=== PATIENT | female | born 1985 | race Caucasian/White ===

== ENCOUNTER → 2018-01-13 | Outpatient (CLI) | payer BC ==
[2018-01-13 15:54] LABS: T4, Free (Free Thyroxine) 0.83 ng/dL (0.78-2.19)
[2018-01-13 21:36] LABS: Hemoglobin A1C 5.4 % (4.0-6.0)
== END ==
LOC: LABWHC1 14:24
PROVIDERS: ATTEND Obstetrics & Gynecology
DX: Z13.1 Encounter for screening for diabetes mellitus (principal)
CPT/HCPCS: 36415; 83036; 84439; 84443

== ENCOUNTER → 2018-05-25 | Outpatient (CLI) | payer MEDICAID, OTHER ==
[2018-05-25 15:15] LABS: HCT 38.5 % (34.0-46.0); HGB 12.8 gm/dL (11.4-16.0); MCH 31.9 pg (25.0-35.0); MCHC 33.2 g/dL (31.0-37.0); MCV 96.1 fL (80.0-100.0); Mean Platelet Volume 6.9; Platelet Count 249 k/uL (150-450); RDW 12.7 % (11.5-15.5); WBC 8.7 k/uL (3.8-10.6)
== END | disposition home or self-care (01) ==
LOC: LABWHC1 14:40
PROVIDERS: ATTEND Obstetrics & Gynecology
DX: Z34.81 Encounter for supervision of other normal pregnancy, first trimester (principal)
CPT/HCPCS: 36415; 82565; 82947; 85027; 86762; 86780; 86900; 86901; 87340

== ENCOUNTER → 2018-06-04 | Outpatient (CLI) | payer MEDICAID ==
--- NOTE | 2018-06-04 11:31 | US ---
EXAMINATION TYPE: Transabdominal DATE OF EXAM: 07/21/17 COMPARISON: NONE CLINICAL HISTORY: Z36 Confirm dates. EXAM PERFORMED: Transabdominal (TA) EXAM MEASUREMENTS: GESTATIONAL AGE / DATING Physician Established: (11 weeks/4 days) EDC: 12/20/2018 Dates by LMP: (11 weeks/4 days) EDC: 12/20/2018 Dates by First Scan: No previous this is first scan ( Dates by Current Scan for: (12 weeks/4 days) EDC: 12/13/2018 MATERNAL ANATOMY Uterus: 10.8 x 8.5 x 9.7 cm Right Ovary: 3.4 x 2.3 x 3.0 cm Left Ovary: 2.6 x 1.7 x 2.0 cm Post CDS / Adnexa: wnl Presence of free fluid: No Presence of corpus luteal cyst: Right ovary cystic area visualized 1.5 x 1.4 x 1.9 cm Presence of subchorionic bleed: No GESTATION / SURVEY CRL: 6.1 cm (12 weeks/4 days Heart Rate: 156 bpm Rhythm: Normal IUP: Viable IUP Nuchal Translucency 10-14wks (normal less than 3mm): 0.1 cm Date of LMP: 03/15/2018 Live IUP with an GATITO of 12/13/2018 by this exam. IMPRESSION: Single live intrauterine with a sonographic age of 12 weeks and 4 days and estimated date o f delivery of 12/13/2018, overall concordant with menstrual age (within 7 days).
== END ==
LOC: RADUSWWP 10:55
PROVIDERS: ATTEND Obstetrics & Gynecology
DX: Z36.89 Encounter for other specified antenatal screening (principal); Z3A.12 12 weeks gestation of pregnancy
CPT/HCPCS: 76801; 76813

== ENCOUNTER → 2018-07-22 | Outpatient (CLI) | payer MEDICAID ==
--- NOTE | 2018-07-22 15:24 | US ---
EXAMINATION TYPE: US OB anatomy transabd DATE OF EXAM: 07/22/2018 COMPARISON: First trimester ultrasound June 04, 2018 HISTORY: 2nd trimester Large for dates O36.62X0 Anatomy TECHNIQUE: Transabdominal (TA) EXAM MEASUREMENTS: GESTATIONAL AGE / DATING Physician Established: (19 weeks/3 days) EDC: 12/13/2018 Dates by Current Scan for: (19 weeks/5 days) EDC: 12/11/2018 SURVEY IUP: Single PLACENTA: Posterior PREVIA: No previa UNIQUE: 16.0 cm Normal CERVICAL LENGTH (transabdominal: norm > 3.0cm): 3.9 cm BIOMETRY LIE: Transverse lie with head maternal Left, variable BPD: 4.5 cm 19 weeks / 5 days HC: 16.9 cm 19 weeks / 4 days AC: 15.3 cm 20 weeks / 3 days FL: 2.8 cm 18 weeks / 4 days ESTIMATED WEIGHT IN GRAMS: 302 grams ESTIMATED WEIGHT IN LBS/OZ: 0 lbs. 11 oz. WEIGHT PERCENTAGE BASED ON ESTABLISHED DATE: 56 % HC/AC: 1.1 Normal FL/AC: 18% HEART RATE: 149 bpm RHYTHM: Normal ANATOMY SEEN (within normal limits): * Lateral Vent (< 1 cm) 0.7 cm * Cisterna Magna (< 1.1 cm) 0.4 cm * Nuchal Fold (< 0.6 cm) 0.3 cm * Cerebellum (varies with age) 1.9 cm Choroid Plexus (bilateral) Midline Falx Cavus Septi Pellucidi Four Chamber Heart Outflow tracts: LVOT/RVOT Stomach Situs Nose / Lips Diaphragm Kidneys (bilateral) Bladder Cord Insert Three Vessel Cord Longitudinal Spine Transverse Spine Arms (bilateral) Legs (bilateral) ANATOMY SEEN (does not appear within normal limits): none ANATOMY NOT SEEN: none Single live intrauterine gestation is redemonstrated. No cervical thinning is seen. Amniotic fluid in dex is calculated within normal limits. position is variable. biometry measurements are c oncordant felt within normal limits. No ultrasound evidence for placenta previa. Detailed anatomical survey shows no suspicious abnormality during real-time scanning. nose and lips are not well se en on coronal profile on images saved. IMPRESSION: As above.
== END | disposition home or self-care (01) ==
LOC: RADUSWWP 11:04
PROVIDERS: ATTEND Obstetrics & Gynecology
DX: O36.62X0 Maternal care for excessive fetal growth, second trimester, not applicable or unspecified (principal); Z3A.19 19 weeks gestation of pregnancy
CPT/HCPCS: 76811

== ENCOUNTER 2018-07-31 18:14 | Outpatient (CLI) | payer MEDICAID ==
[2018-07-31 18:52] VITALS: BP 124/78; PULSE 97; RESP 18; TEMP 97.6
[2018-07-31 18:58] LABS: Appearance,Urine Clear (Clear); Bilirubin,Urine Negative (Negative); Blood,Urine Negative (Negative); Color,Urine Yellow; Glucose,Urine (UA) Negative (Negative); Ketones,Urine Negative (Negative); Leukocyte Esterase,Urine Negative (Negative); Nitrite,Urine Negative (Negative); PH, Urine 6.5 (5.0-8.0); Protein,Urine Trace (Negative); Urobilinogen,Urine <2.0 mg/dL (<2.0)
--- NOTE | 2018-07-31 19:50 | US ---
EXAMINATION TYPE: US OB >= 14 wk fetus DATE OF EXAM: 07/31/2018 COMPARISON: None CLINICAL HISTORY: vaginal bleeding TECHNIQUE: Transabdominal (TA) GESTATIONAL AGE / DATING Physician Established: (20 weeks/5 days) EDC: 12/13/2018 Dates by LMP: 20 weeks/5 days) EDC: 12/13/2018 Dates by First Scan: 20 weeks/5 days) EDC: 12/13/2018 Dates by Current Scan: 20 weeks/5 days) EDC: 12/13/2018 SURVEY IUP: Single PLACENTA: Posterior PREVIA: No Previa UNIQUE: 16.0 cm Normal CERVICAL LENGTH (transabdominal: norm > 3.0cm): 3.5 cm BIOMETRY PRESENTATION: Vertex LIE: Longitudinal BPD: 5.0 cm 21 weeks / 1 days HC: 18.5 cm 20 weeks / 6 days AC: 16.1 cm 21 weeks / 1 days FL: 3.4 cm 20 weeks / 6 days ESTIMATED WEIGHT IN GRAMS: 390 grams ESTIMATED WEIGHT IN LBS/OZ: 0 lbs. 14 oz. WEIGHT PERCENTAGE BASED ON ESTABLISHED DATES: 59.6% HC/AC: 1.15 Normal FL/AC: 21.35 Normal HEART RATE: 148 bpm RHYTHM: Normal Viable IUP, measurements consistent with dates IMPRESSION: There is satisfactory growth compared to last exam of 06/04/2018. No complicating process.
--- NOTE | 2018-08-02 06:16 | P.MSEPDOC ---
Presenting Problems - Arrival Data Date of Arrival on Unit: 07/31/18 Time of Arrival on Unit: 18:15 Mode of Transport: Portable - Complaint OB-Reason for Admission/Chief Complaint: Vaginal Bleeding Comment: small blood clot and spotting for the last 2-3 days Medical History - Information : 5 Para: 1 Term: 1 : 0 Abortions: Spontaneous or Elective: 3 Number of Living Children: 1 - Gestational Age Gestational Age by GATITO (wks/days): 20 Weeks and 2 Days Review of Systems - Review of Systems Constitutional: No problems Breast: No problems ENT: No problems Cardiovascular: No problems Respiratory: No problems Gastrointestinal: No problems Genitourinary: No problems Musculoskeletal: No problems Neurological: No problems Skin: No problems Vital Signs - Temperature Temperature: 97.6 F Temperature Source: Temporal Artery Scan - Pulse Right Brachial Pulse Rate: 97 Pulse Assessment Method: Auscultation - Respirations Respiratory Rate: 18 Oxygen Delivery Method: Room Air - Blood Pressure Right Arm Blood Pressure: 124/78 Blood Pressure Mean: 93 Blood Pressure Source: Automatic Cuff Medical Screen Scoring (Pre) - Cervical Exam Dilation: Exam Deferred Effacement: Exam Deferred Membranes: Intact - Uterine Contractions Frequency: N/A - Maternal Vital Signs Maternal Temperature: N/A Maternal Blood Pressure: N/A Signs of Preeclampsia: N/A - Pain Assessment Pain Intensity: 3 Pain Management Goal: 1 Pain Description: *Acute, Aching Pain Radiation Location: none Pain Frequency: Intermittent Pain Duration: 3 Pain Duration Units: Days Pain Behavior: None Exhibited, Vocalization Pain Aggravating Factors: None - Maternal Trauma Maternal Trauma: N/A - Assessment Heart Rate - NICHD Category: Category I (Normal) = 0 Position: N/A Station: N/A - Total Score Total Score (Pre): 0 - Level of Risk Level of Risk: Low (0-5) Physician Notification (Pre) - Physician Notified Physician Notified Date: 07/31/18 Physician Notified Time: 18:41 Physician/Practitioner Notifed:: Dr. Ambrocio Spoke With: Dr. Ambrocio New Order Received: Yes - Notification Comment Comment: orders to obtain UA and complete OB ultrasound Disposition - Disposition Discharge Date: 07/31/18 Discharge Time: 19:39 I agree with the RN Medical Screening Exam: Yes Risk & Benefit of care provided described in d/c instruction: Yes Diagnosis: SPOTTING COMPLICATING , SECOND TRIMESTER (Patient reports spotting on and off for the last week or so. Ultrasound is repeated normal without evidence of placenta previa or placental abruption. Patient is not having significant bleeding here in labor and delivery. At this point have no evidence of maternal or compromise and therefore was sent home on bedrest follow-up with Dr. Joaquin this week.)
== END 2018-07-31 19:40 | disposition home or self-care (01) ==
LOC: FBPOP 18:14
PROVIDERS: ATTEND Obstetrics & Gynecology
DX: O26.852 Spotting complicating pregnancy, second trimester (principal); Z3A.20 20 weeks gestation of pregnancy
CPT/HCPCS: 76805; 81003; 99213

== ENCOUNTER → 2018-08-26 | Outpatient (CLI) | payer MEDICAID ==
[2018-08-26 12:27] LABS: HGB 11.2 gm/dL (11.4-16.0); MCH 33.1 pg (25.0-35.0); MCHC 32.9 g/dL (31.0-37.0); MCV 100.7 fL (80.0-100.0); Macrocytosis Slight; Mean Platelet Volume 7.5; Platelet Count 246 k/uL (150-450); RBC 3.38 m/uL (3.80-5.40); RDW 13.6 % (11.5-15.5); WBC 8.6 k/uL (3.8-10.6)
== END | disposition home or self-care (01) ==
LOC: LABWHC1 10:49
PROVIDERS: ATTEND Obstetrics & Gynecology
DX: Z34.82 Encounter for supervision of other normal pregnancy, second trimester (principal)
CPT/HCPCS: 36415; 82950; 85027

== ENCOUNTER 2018-11-26 18:33 | Outpatient (CLI) | payer MEDICAID, OTHER ==
[2018-11-26 19:21] VITALS: BP 135/67; PULSE 90; TEMP 98.1
[2018-11-26 20:32] VITALS: RESP 18
--- NOTE | 2018-12-02 08:47 | P.MSEPDOC ---
Presenting Problems - Arrival Data Date of Arrival on Unit: 11/26/18 Time of Arrival on Unit: 18:33 Mode of Transport: Ambulatory - Complaint OB-Reason for Admission/Chief Complaint: Possible Onset of Labor, Rule Out PROM Comment: contractions for one hour, possible leaking Medical History - Information : 5 Para: 1 Term: 1 : 0 Abortions: Spontaneous or Elective: 3 Number of Living Children: 1 - Gestational Age Gestational Age by GATITO (wks/days): 37 Weeks and 4 Days Review of Systems - Review of Systems Constitutional: No problems Breast: No problems ENT: No problems Cardiovascular: No problems Respiratory: No problems Gastrointestinal: No problems Genitourinary: No problems Musculoskeletal: No problems Neurological: No problems Skin: No problems Vital Signs - Temperature Temperature: 98.1 F Temperature Source: Temporal Artery Scan - Pulse Right Brachial Pulse Rate: 90 Pulse Assessment Method: Automatic Cuff - Respirations Respiratory Rate: 18 Oxygen Delivery Method: Room Air - Blood Pressure Right Arm Sitting Blood Pressure: 135/67 Blood Pressure Mean: 89 Blood Pressure Source: Automatic Cuff Medical Screen Scoring (Pre) - Cervical Exam Dilation: 1-3 cm = 1 Membranes: Intact - Uterine Contractions Frequency: > or = 36 weeks =2 Duration: > 40 seconds = 2 Intensity: Contraction palpated strong = 1 - Maternal Vital Signs Maternal Temperature: N/A Maternal Blood Pressure: N/A Signs of Preeclampsia: N/A Maternal Respirations: N/A - Maternal Trauma Maternal Trauma: N/A - Assessment - Baby A Baseline FHR: 120 Heart Rate - NICHD Category: Category I (Normal) = 0 NST: Reactive Position: N/A Station: N/A - Total Score - Baby A Total Score - Baby A: 6 - Total Score - Baby B Total Score - Baby B: 6 - Total Score - Baby C Total Score - Baby C: 6 - Level of Risk - Baby A Level of Risk - Baby A: Medium (6-9) - Level of Risk - Baby B Level of Risk - Baby B: Medium (6-9) - Level of Risk - Baby C Level of Risk - Baby C: Medium (6-9) Medical Screen Scoring (Post) - Cervical Exam Dilation: 1-3 cm = 1 Effacement: Exam Deferred Membranes: Intact - Uterine Contractions Frequency: > or = 36 weeks =2 Duration: > 40 seconds = 2 Intensity: Contraction palpated strong = 1 - Maternal Vital Signs Maternal Temperature: N/A Maternal Blood Pressure: N/A Signs of Preeclampsia: N/A Maternal Respirations: N/A - Pain Assessment Pain Location and Character: Abdomen Pain Scale Used: Numeric (1 - 10) Pain Intensity: 6 Pain Management Goal: 3 Pain Description: *Acute, Cramping Pain Frequency: Intermittent Pain Duration Units: Minutes Pain Behavior: Vocalization Pain Aggravating Factors: Contractions Non-Pharmacological Interventions: Distraction, Environmental Control, Position/Reposition, Relaxation Technique - Maternal Trauma Maternal Trauma: N/A - Assessment - Baby A Heart Rate: 120 Heart Rate - NICHD Category: Category I (Normal) = 0 NST: Reactive Position: N/A Station: N/A - Total Score Total Score - Baby A: 6 Total Score - Baby B: 6 Total Score - Baby C: 6 - Post Treatment Level of Risk Post Treatment Level of Risk - Baby A: Medium (6-9) Post Treatment Level of Risk - Baby B: Medium (6-9) Post Treatment Level of Risk - Baby C: Medium (6-9) Physician Notification (Post) - Physician Notified Physician Notified Date: 11/26/18 Physician Notified Time: 20:10 Physician/Practitioner Notified:: Dr. Saucedo Spoke With: Dr. Saucedo New Order Received: Yes (discharge home with follow up instructions.) - Notification Comment Comment: Pt given option to stay additional hour or discharge home and this time, with follow up instructions, per Dr. Saucedo in unit. Disposition - Disposition OB Disposition: Discharge to home Discharge Date: 11/26/18 Discharge Time: 20:10 I agree with the RN Medical Screening Exam: Yes Risk & Benefit of care provided described in d/c instruction: Yes Diagnosis: FALSE LABOR AT OR AFTER 37 COMPLETED WEEKS OF GESTATION
== END 2018-11-26 20:15 | disposition home or self-care (01) ==
LOC: FBPOP 18:33
PROVIDERS: ATTEND Obstetrics & Gynecology
DX: O47.1 False labor at or after 37 completed weeks of gestation (principal); Z3A.37 37 weeks gestation of pregnancy
CPT/HCPCS: 59025; 99213

== ENCOUNTER 2018-12-13 13:43 | Inpatient (IN) | payer MEDICAID, OTHER ==
[2018-12-14] MEDS ORDERED: LIDOCAINE 0.5% (PF) 5 MG/ML (50 ML SDV) SQ PRN (07:00)
[2018-12-14] MEDS ORDERED: TERBUTALINE 1 MG/ML VIAL SQ PRN (07:00)
[2018-12-14] MEDS ORDERED: OXYTOCIN 10 UNIT/ML 1 ML VIAL IM PRN (07:00)
[2018-12-14] MEDS ORDERED: CARBOPROST TROMETHAMINE 250 MCG/ML 1 ML AMP IM PRN (07:00)
[2018-12-14] MEDS ORDERED: OXYTOCIN 30 UNITS/500 ML NS 30 UNIT in SALINE 1 500ML.BAG IV SCH (07:00)
[2018-12-14] MEDS ORDERED: METHYLERGONOVINE 0.2 MG/ML 1 ML AMP IM PRN (07:00)
[2018-12-14 07:10] LABS: Basophils # (A) 0.1 k/uL (0-0.2); Basophils % (A) 1 %; Eosinophils # (A) 0.3 k/uL (0-0.7); Eosinophils % (A) 3 %; HCT 31.4 % (34.0-46.0); HGB 10.1 gm/dL (11.4-16.0); Hypochromasia Slight; Lymphocytes # (A) 1.6 k/uL (1.0-4.8); Lymphocytes % (A) 15 %; MCH 28.1 pg (25.0-35.0); MCV 87.8 fL (80.0-100.0); Mean Platelet Volume 8.8; Monocytes # (A) 0.5 k/uL (0-1.0); Monocytes % (A) 5 %; Neutrophils # (A) 7.5 k/uL (1.3-7.7); Neutrophils % (A) 73 %; Platelet Count 269 k/uL (150-450); RBC 3.58 m/uL (3.80-5.40); RDW 15.3 % (11.5-15.5); WBC 10.3 k/uL (3.8-10.6)
[2018-12-14 07:11] VITALS: BMI 34.2
[2018-12-14] MEDS: LACTATED RINGERS 1,000 ML IV SCH ×2 (07:12→08:48)
[2018-12-14] MEDS ORDERED: fentaNYL (PF) 50 MCG/ML 5 ML AMP ONE (08:15)
[2018-12-14] MEDS ORDERED: SODIUM CHLORIDE 0.9% 100 ML BAG ONE (08:15)
[2018-12-14] MEDS ORDERED: ROPIVACAINE 5MG/ML 20ML VIAL ONE (08:15)
--- NOTE | 2018-12-14 16:29 | P.HPOB ---
History of Present Illness H&P Date: 12/14/18 Chief Complaint: Intrauterine at 40 weeks Patient is a 33-year-old at 40 weeks gestation who arrives for induction of labor. She was dilated to 5 cm 80% effaced -2 station artificial rupture membranes was performed and clear fluid is noted. Her course otherwise has been unremarkable. She is feeling well at this time. She is followed Dr. Joaquin for her . She does have a history of macrosomia and we're expecting a large baby this time as well. Ultrasounds have predicted same. Pertinent labs fluid A+ blood type Rh and it was negative, rubella was immune, hepatitis B surface antigen was negative, GBS was also negative. We will proceed with Pitocin augmentation of labor. She plans to use an epidural for analgesia. Past Medical History Past Medical History: Asthma Additional Past Medical History / Comment(s): having possible gallbladder problems. History of Any Multi-Drug Resistant Organisms: None Reported Past Surgical History: Hernia Repair Additional Past Surgical History / Comment(s): Dental procedure. Hernia repair 2013. Past Anesthesia/Blood Transfusion Reactions: No Reported Reaction Past Psychological History: No Psychological Hx Reported Smoking Status: Never smoker Past Alcohol Use History: Occasional Past Drug Use History: None Reported - Past Family History Mother Family Medical History: No Reported History Medications and Allergies Home Medications Medication Instructions Recorded Confirmed Type Albuterol Inhaler [Ventolin 2 puff INHALATION PRN 08/24/13 11/26/18 History Inhaler] Pnv No.95/Ferrous Fum/Folic AC 1 each PO DAILY 07/31/18 12/14/18 History [ Multivitamin Tablet] Allergies Allergy/AdvReac Type Severity Reaction Status Date / Time Penicillins Allergy Rash/Hives Verified 12/14/18 06:57 Exam Osteopathic Statement: *. No significant issues noted on an osteopathic structural exam other than those noted in the History and Physical/Consult. Vital Signs Temp Pulse Resp BP Pulse Ox 12/14/18 16:03 97.6 F 96 18 125/78 12/14/18 16:00 97.6 F 96 16 125/78 12/14/18 15:34 86 16 136/83 12/14/18 15:06 97 18 118/72 12/14/18 14:51 97 18 121/76 12/14/18 14:36 95 18 122/74 12/14/18 14:20 109 H 18 137/75 12/14/18 14:06 93 18 133/82 12/14/18 06:57 97.9 F 111 H 18 134/79 98 Intake and Output 12/14/18 12/14/18 12/14/18 06:59 14:59 22:59 Output Total 100 Balance -100 Output: Urine 100 Other: Weight 93.44 kg - OBG Physical Exam Breast: both: normal (no masses) Abdomen: bowel sounds normal, no diffuse tenderness, no bruit present, no guarding noted, no hepatomegaly, no splenomegaly, no mass Vulva: both: normal Vagina: normal moisture, no discharge Cervix: no lesion, no discharge Uterus: normal size, normal contour Adnexa: both: normal Anus/Rectum: normal perianal skin, no rectal mass, no hemorrhoids, heme negative Results Result Diagrams: 12/14/18 07:01 Abnormal Lab Results - Last 24 Hours (Table) 12/14/18 Range/Units 07:01 RBC 3.58 L (3.80-5.40) m/uL Hgb 10.1 L (11.4-16.0) gm/dL Hct 31.4 L (34.0-46.0) %
--- NOTE | 2018-12-14 16:31 | P.PROBDLV ---
Vaginal Delivery Note - . Vaginal Delivery Note: Patient progressed complete and pushing with spontaneous vaginal delivery of a viable male over a midline episiotomy with third-degree extension. It is noted that patient requested and episiotomy she requested both prior to delivery and at the time of delivery as she had a tear last time that did not heal well. We did review risks of at episiotomy versus allowing natural tear. Local anesthetic was injected prior to episiotomy. Once baby's head was delive red mouth nares were bulb suctioned followed by easily delivered anterior posterior shoulders with gentle downward and upward traction. Baby was delivered from left occiput anterior position. Once baby was fully developed baby was placed on mother's abdomen where the umbilical cord was allowed to pulsate for 30 seconds prior to clamping and cutting. Nursery personnel was present to assume care. Placenta was then delivered intact and Pitocin was added to the IV. scores were 9 and 9 at one and 5 minutes respectively and the weight was 9 lbs. 7 oz. Midline episiotomy was then repaired in usual fashion with 3-0 Vicryl. Both mother and baby are stable following delivery.
[2018-12-14] MEDS ORDERED: LANOLIN CREAM 5 GM TUBE TOPICAL PRN (20:33)
[2018-12-14] MEDS ORDERED: BENZOCAINE/MENTHOL SPRAY 1 GM/SPRAY AEROSOL TOPICAL PRN (20:33)
[2018-12-14] MEDS ORDERED: ACETAMINOPHEN TAB 325 MG TAB PO PRN (20:33)
[2018-12-14] MEDS ORDERED: HYDROCORTISONE 2.5% RECTAL CREAM 30 GM TUBE RECTAL PRN (20:33)
[2018-12-14] MEDS ORDERED: WITCH HAZEL 1 EACH MED..PAD TOPICAL PRN (20:33)
[2018-12-14] MEDS: SENNOSIDES-DOCUSATE SODIUM 1 EACH TAB PO SCH (20:44)
[2018-12-14] MEDS: IBUPROFEN 600 MG TAB PO PRN (21:26)
[2018-12-15] MEDS ORDERED: IBUPROFEN 600 MG TAB PO ONE (04:10)
[2018-12-15] MEDS: SENNOSIDES-DOCUSATE SODIUM 1 EACH TAB PO SCH ×2 (07:42→20:06)
--- NOTE | 2018-12-15 08:39 | P.PNOBGVD ---
Subjective - Subjective Principal diagnosis: day 1 Interval history: Patient is doing very well day 1. She is ambulating, voiding and tolerating her diet. She voices no complaints. Patient reports: Reports appetite normal, Reports voiding normally, Reports pain well controlled, Reports ambulating normally [place]: doing well Objective - Latest Vital Signs Latest vital signs: Vital Signs Temp Pulse Resp BP Pulse Ox 12/15/18 00:00 98.2 F 68 18 128/67 99 12/14/18 20:00 97.9 F 86 18 108/67 99 12/14/18 16:03 97.6 F 96 18 125/78 12/14/18 16:00 97.6 F 96 16 125/78 12/14/18 15:34 86 16 136/83 12/14/18 15:06 97 18 118/72 12/14/18 14:51 97 18 121/76 12/14/18 14:36 95 18 122/74 12/14/18 14:20 109 H 18 137/75 12/14/18 14:06 93 18 133/82 Intake and Output 12/14/18 12/15/18 12/15/18 22:59 06:59 14:59 Output Total 1100 Balance -1100 Output: Urine 1100 Other: # Voids 1 - Exam Lungs: bilateral: normal Chest: Normal S1, Normal S2 Extremities: Present: normal Abdomen: Present: normal appearance, soft Uterus: Present: normal, firm
[2018-12-15 09:27] VITALS: RESP 16
[2018-12-15] MEDS: IBUPROFEN 600 MG TAB PO PRN (11:13)
[2018-12-16 00:25] VITALS: TEMP 98
[2018-12-16] MEDS: SENNOSIDES-DOCUSATE SODIUM 1 EACH TAB PO SCH (07:44)
--- NOTE | 2018-12-16 07:49 | P.DS ---
Providers Date of admission: 12/14/18 06:40 Expected date of discharge: 12/16/18 Attending physician: Tamra Joaquin Primary care physician: Stated None Hospital Course: Patient is doing very well day 2. She is ambulating, voiding and tolerating her diet. She voices no complaints. Vital signs are stable and afebrile. Heart regular, lungs clear, extremities without pain. Abdomen is soft uterus is firm lochia is reported light. She is requesting medications for pain to go home with her. Prescription for breast pump was however provided. All questions were answered for her prior to discharge and she is stable for d ischarge this time. In 6 weeks. Patient Condition at Discharge: Good Plan - Discharge Summary New Discharge Prescriptions: No Action Albuterol Inhaler [Ventolin Inhaler] 2 puff INHALATION PRN PRN Reason: asthma Pnv No.95/Ferrous Fum/Folic AC [ Multivitamin Tablet] 1 each PO DAILY Discharge Medication List Albuterol Inhaler [Ventolin Inhaler] 2 puff INHALATION PRN 08/24/13 [History] Pnv No.95/Ferrous Fum/Folic AC [ Multivitamin Tablet] 1 each PO DAILY 07/31/18 [History] Follow up Appointment(s)/Referral(s): Tamra Joaquin DO [Doctor of Osteopathic Medicine] - 6 Weeks Activity/Diet/Wound Care/Special Instructions: No heavy lifting, limit stairs and driving, and pelvic rest. If any high temperatures, heavy bleeding, or severe pain call our office Discharge Disposition: HOME SELF-CARE
[2018-12-16 08:42] VITALS: BP 114/68; PULSE 86
== END 2018-12-16 10:20 | disposition home or self-care (01) | DRG 768 ==
LOC: 4FBP 12-14 06:40
PROVIDERS: ADMIT Obstetrics & Gynecology; ATTEND Obstetrics & Gynecology
PROC: 10E0XZZ Delivery of Products of Conception, External Approach (ICD-10-PCS; principal; 2018-12-14)
PROC: 0DQR0ZZ Repair Anal Sphincter, Open Approach (ICD-10-PCS; 2018-12-14)
PROC: 00HU33Z Insertion of Infusion Device into Spinal Canal, Percutaneous Approach (ICD-10-PCS; 2018-12-14)
PROC: 3E0R3BZ Introduction of Anesthetic Agent into Spinal Canal, Percutaneous Approach (ICD-10-PCS; 2018-12-14)
PROC: 0W8NXZZ Division of Female Perineum, External Approach (ICD-10-PCS; 2018-12-14)
DX: O36.60X0 Maternal care for excessive fetal growth, unspecified trimester, not applicable or unspecified (principal); Z37.0 Single live birth; O70.20 Third degree perineal laceration during delivery, unspecified; O99.52 Diseases of the respiratory system complicating childbirth; J45.909 Unspecified asthma, uncomplicated; Z3A.40 40 weeks gestation of pregnancy; Z88.0 Allergy status to penicillin
CPT/HCPCS: 85025; 86850; 86900; 86901

== ENCOUNTER → 2019-09-14 | Outpatient (CLI) | payer OTHER ==
--- NOTE | 2019-09-14 11:56 | XR ---
EXAMINATION TYPE: XR knee complete LT DATE OF EXAM: 09/14/2019 CLINICAL HISTORY: Sudden pain after popping injury today. TECHNIQUE: Three views of the left knee are obtained. COMPARISON: None. FINDINGS: There is no acute fracture/dislocation evident in left knee. The tri-compartment joint sp aces appear within normal limits. The overlying soft tissue appears unremarkable. A fabella is incid entally noted. IMPRESSION: There is no acute fracture or dislocation in the left knee.
== END | disposition home or self-care (01) ==
LOC: RADXRMAIN 11:26
PROVIDERS: ATTEND Emergency Medicine
DX: S83.92XA Sprain of unspecified site of left knee, initial encounter (principal)

== ENCOUNTER → 2020-04-25 | Outpatient (CLI) | payer MEDICAID, OTHER | END | disposition home or self-care (01) | LOC: LABWHC1 13:19 | PROVIDERS: ATTEND Obstetrics & Gynecology | DX: O20.0 Threatened abortion (principal) | CPT/HCPCS: 36415; 84702 ==

== ENCOUNTER → 2020-04-27 | Outpatient (CLI) | payer MEDICAID, OTHER | END | disposition home or self-care (01) | LOC: LABWHC1 13:29 | PROVIDERS: ATTEND Obstetrics & Gynecology | DX: O20.0 Threatened abortion (principal); Z3A.00 Weeks of gestation of pregnancy not specified | CPT/HCPCS: 36415; 84702 ==

== ENCOUNTER → 2020-05-03 | Outpatient (CLI) | payer MEDICAID, OTHER | END | disposition home or self-care (01) | LOC: LABWHC1 14:55 | PROVIDERS: ATTEND Obstetrics & Gynecology | DX: O03.9 Complete or unspecified spontaneous abortion without complication (principal) | CPT/HCPCS: 36415; 84702 ==

== ENCOUNTER → 2020-06-07 | Outpatient (CLI) | payer MEDICAID, OTHER | END | disposition home or self-care (01) | LOC: LABWHC1 11:15 | PROVIDERS: ATTEND Obstetrics & Gynecology | DX: O03.9 Complete or unspecified spontaneous abortion without complication (principal) | CPT/HCPCS: 36415; 84702 ==

== ENCOUNTER → 2020-06-14 | Outpatient (CLI) | payer MEDICAID, OTHER ==
--- NOTE | 2020-06-14 15:57 | US ---
EXAMINATION TYPE: US pelvic complete DATE OF EXAM: 06/14/2020 COMPARISON: NONE CLINICAL HISTORY: D25.9 Fibroid uterus. Fibroids TECHNIQUE: Transvaginal (TV). EXAM MEASUREMENTS: Uterus: 7.2 x 4.2 x 5.4 cm Endometrial Stripe: .7 cm Right Ovary: 3.2 x 2.4 x 2.1 cm Left Ovary: 2.7 x 2.4 x 2.2 cm 1. Uterus: Anteverted wnl 2. Endometrium: wnl 3. Right Ovary: Cystic area 2.0 x 1.2 x 2.0 cm 4. Left Ovary: wnl 5. Bilateral Adnexa: wnl 6. Posterior cul-de-sac: wnl IMPRESSION: Probable functional right ovarian cyst. This can be confirmed with follow-up study in 6 weeks.
== END | disposition home or self-care (01) ==
LOC: RADUSWWP 09:34
PROVIDERS: ATTEND Obstetrics & Gynecology
DX: D25.9 Leiomyoma of uterus, unspecified (principal)
CPT/HCPCS: 76830

== ENCOUNTER → 2021-04-18 | Outpatient (CLI) | payer MEDICAID, OTHER ==
[2021-04-19 00:11] LABS: HCT 38.4 % (37.2-46.3); HGB 12.6 g/dL (12.0-15.0); MCH 32.9 pg (27.0-32.0); MCHC 32.8 g/dL (32.0-37.0); MCV 100.3 fL (80.0-97.0); Mean Platelet Volume 10.5 fL (9.5-12.2); Platelet Count 247 X 10*3/uL (140-440); RBC 3.83 X 10*6/uL (4.10-5.20); RDW 12.9 % (11.5-14.5); WBC 6.94 X 10*3/uL (4.50-10.00)
[2021-04-19 02:33] LABS: ALT 27 U/L (8-44); AST 21 U/L (13-35); African American GFR (CKD) 135.5 (60.0-200.0); Albumin 4.5 g/dL (3.8-4.9); Albumin/Globulin Ratio 2.02 (1.60-3.17); Alkaline Phosphatase 50 U/L (41-126); BUN/Creat Ratio 21.52 Ratio (12.00-20.00); Blood Urea Nitrogen 13.3 mg/dL (9.0-27.0); Calcium 9.3 mg/dL (8.7-10.3); Carbon Dioxide 23.9 mmol/L (20.0-27.5); Chloride 101 mmol/L (96-109); Globulin 2.2 g/dL (1.6-3.3); Glucose 107 mg/dL (70-110); Sodium 139 mmol/L (135-145); Total Bilirubin <0.20 mg/dL (0.30-1.20); Total Protein 6.7 g/dL (6.2-8.2)
== END | disposition home or self-care (01) ==
LOC: LABWHC1 14:47
PROVIDERS: ATTEND Family Medicine
DX: Z00.00 Encounter for general adult medical examination without abnormal findings (principal); K43.9 Ventral hernia without obstruction or gangrene; R41.840 Attention and concentration deficit
CPT/HCPCS: 36415; 80053; 84439; 84443; 85027

== ENCOUNTER → 2022-01-24 | Outpatient (CLI) | payer OTHER ==
[2022-01-24 21:44] LABS: Urine Alcohol Negative (Negative); Urine Barbiturate Negative (Negative); Urine Cocaine Negative (Negative); Urine Methadone Negative (Negative); Urine Opiates Negative (Negative); Urine Phencyclidine Negative (Negative)
== END | disposition home or self-care (01) ==
LOC: LABWHC1 13:35
PROVIDERS: ATTEND Family Medicine
DX: F90.0 Attention-deficit hyperactivity disorder, predominantly inattentive type (principal)
CPT/HCPCS: 80306

== ENCOUNTER → 2022-07-21 | Outpatient (CLI) | payer MEDICAID, OTHER ==
--- NOTE | 2022-07-21 13:03 | XR ---
EXAMINATION TYPE: XR shoulder complete LT DATE OF EXAM: 07/21/2022 COMPARISON: NONE HISTORY: Pain TECHNIQUE: Shoulder examined in 3 projections. FINDINGS: The humeral head articulates with the glenoid. The acromio-clavicular junction is normal. No acute fractures or dislocations are evident. A follow up study can be performed 7-10 days from acute trauma for continued pain. MRI can be perfor med if soft tissue evaluation would be of benefit. IMPRESSION: 1. No acute osseous shoulder abnormality.
== END | disposition home or self-care (01) ==
LOC: RADXRMAIN 12:23
PROVIDERS: ATTEND Family Medicine
DX: M25.512 Pain in left shoulder (principal)

== ENCOUNTER → 2023-09-25 | Day surgery (SDC) | payer BC, MEDICAID, OTHER ==
[2023-09-23 15:49] VITALS: BMI 29.0
[~2023-09-25] MED LIST: ACETAMINOPHEN TAB 325 MG TAB PO SCH; GLYCOPYRROLATE 0.2 MG/ML 2 ML VIAL ONE; HYDROmorphone (PF) 1 MG/ML ONE; HYDROmorphone 0.5 MG/0.5 ML SYRINGE IVP PRN; IBUPROFEN 600 MG TAB PO SCH; KETAMINE HCL IN 0.9 % NACL 50 MG/5 ML SYRINGE ONE; LIDOCAINE 1% (10MG/ML) FOR IV START INTRADERMA PRN; LIDOCAINE 1% INJ 10MG/ML (20 ML MDV) ONE; MIDAZOLAM 2 MG/2 ML VIAL ONE; NEOSTIGMINE 1 MG/ML 10 ML VIAL ONE; PROPOFOL 10 MG/ML 20 ML VIAL IV ONE; ROCURONIUM 10 MG/ML (5 ML VIAL) IV ONE; fentaNYL (PF) 50 MCG/ML 2 ML AMP IV PRN; fentaNYL (PF) 50 MCG/ML 2 ML AMP ONE
[2023-09-25] MEDS: ACETAMINOPHEN TAB 500 MG TAB PO PRN (07:23)
--- NOTE | 2023-09-25 07:30 | P.GSHP ---
History of Present Illness H&P Date: 09/25/23 Chief Complaint: Ventral hernia 38-year-old female known to our service. Underwent previous open repair umbilical hernia 10 years ago. During her in 2019 she noticed a new bulge superior to the umbilicus. This has been gradually increasing in size. Mild soreness. Past Medical History Past Medical History: Asthma Additional Past Medical History / Comment(s): hernia abdomen,Covid infection -2023 History of Any Multi-Drug Resistant Organisms: None Reported Past Surgical History: Hernia Repair Additional Past Surgical History / Comment(s): Dental procedure. Hernia repair 2013. Past Anesthesia/Blood Transfusion Reactions: No Reported Reaction Additional Past Anesthesia/Blood Transfusion Reaction / Comment(s): emotional and sad coming out of anesthesia. mom is also emotional coming out of anesthesia. no hx blood transfusion Smoking Status: Former smoker - Past Family History Mother Family Medical History: No Reported History Medications and Allergies Home Medications Medication Instructions Recorded Confirmed Type Albuterol Inhaler [Ventolin 2 puff INHALATION Q6H PRN 08/24/13 09/25/23 History Inhaler] Dextroamphetamine/Amphetamine 20 mg PO BID 09/23/23 09/25/23 History [Adderall Xr 20 mg Capsule] Allergies Allergy/AdvReac Type Severity Reaction Status Date / Time Penicillins Allergy Rash/Hives Verified 09/25/23 07:11 Surgical - Exam Physical exam: General: Well-developed, well-nourished HEENT: Normocephalic, sclerae nonicteric Abdomen: Nontender, nondistended, incarcerated ventral hernia 1.5 cm superior to umbilicus Extremities: No edema Neuro: Alert and oriented Assessment and Plan (1) Incarcerated ventral hernia Narrative/Plan: Will proceed with open repair incarcerated ventral hernia with mesh. Risks of bleeding, infection, recurrence, bladder and bowel injury, numbness, nerve injury were discussed with the patient. The patient understands and wishes to proceed. Current Visit: Yes Status: Acute Code(s): K43.6 - OTHER AND UNSP VENTRAL HERNIA WITH OBSTRUCTION, W/O GANGRENE SNOMED Code(s): 238341638
[2023-09-25] MEDS: ONDANSETRON 4 MG/2 ML VIAL IVP ONE (07:37)
[2023-09-25] MEDS: DEXAMETHASONE SOD PHOSPHATE 4 MG/ML 1 ML VIAL IV ONE (07:37)
[2023-09-25] MEDS: IV FLUID CONTINUATION 1,000 ML IV ONE (07:38)
[2023-09-25] MEDS: LACTATED RINGERS 1,000 ML IV SCH (07:38)
[2023-09-25] MEDS: HEPARIN SODIUM,PORCINE 5,000 UNIT/ML 1 ML VIAL SQ PRN (08:06)
[2023-09-25] MEDS: MIDAZOLAM 2 MG/2 ML VIAL IV PRN (08:15)
[2023-09-25] MEDS: LACTATED RINGERS 1,000 ML IV ONE (09:15)
[2023-09-25] MEDS: BUPIVACAINE (PF) 0.25% 30 ML VIAL SQ ONE (09:18)
--- NOTE | 2023-09-25 09:23 | P.OP ---
Date of Procedure: 09/25/23 Procedure(s) Performed: PREOPERATIVE DIAGNOSIS: Incarcerated ventral hernia POSTOPERATIVE DIAGNOSIS: Same PROCEDURE: Open repair incarcerated ventral hernia with mesh SURGEON: Dr. Christianson ANESTHESIA: General OPERATIVE PROCEDURE DETAILS: Patient placed on the operating table in the supine position. Abdomen was prepped and draped in usual sterile fashion. A vertical incision was then made superior to the umbilicus. Dissection through the subcutaneous tissues took place using electrocautery. The patient had a single fascial defect present. This measured 1.5 x 1 cm in size. The surrounding fascia was cleared. There were no additional hernia seen. I could see previous Ethibond sutures inferior to this hernia site. The preperitoneal space was then carefully dissected using both blunt dissection and cautery. We were able to avoid entrance into the perineal cavity. The 4.3 cm ventral ex mesh was placed in the preperitoneal space and sutured to the fascia using trans-fascial 0 Ethibond sutures. Following that the fascial defect was reapproximated horizontally using interrupted 0 Ethibond mattress sutures. The subcutaneous tissues were closed using 3-0 Vicryl sutures. The skin was closed using a running 4-0 Monocryl suture. Skin glue and sterile dressings were applied. HERNIA CHARACTERISTICS: Length: 1 cm Width: 1.5 cm Type: Incarcerated ventral TYPE OF MESH USED: 4.3 cm ventral X LOCATION OF MESH: [place] FIXATION: 0 Ethibond PREOPERATIVE DISCUSSION ON SMOKING CESSASTION: Yes PREOPERATIVE DISCUSSION ON MORBID OBESITY: Yes PREOPERATIVE DISCUSSION ON APPROPRIATE USE OF NARCOTIC USE: Yes PREOPERATIVE EDUCATION: Multi Modal, Smoking Cessation and Weight Loss with BMI over 35. DISPOSITION: Stable to recovery room
[2023-09-25 09:41] VITALS: TEMP 97.3
[2023-09-25 13:06] VITALS: BP 136/83; PULSE 67; RESP 16
== END | disposition home or self-care (01) ==
LOC: OR 06:43
PROVIDERS: ATTEND Surgery
DX: K43.6 Other and unspecified ventral hernia with obstruction, without gangrene (principal); J45.909 Unspecified asthma, uncomplicated; Z88.0 Allergy status to penicillin; Z87.891 Personal history of nicotine dependence; Z79.899 Other long term (current) drug therapy
CPT/HCPCS: 81025; 49592; C1781; J2250; J1644; J1100; J2710; J0690; J2405; J2001; J3010; J1170; J2704; J0665

== ENCOUNTER 2024-10-09 09:48 | Emergency (ER) | payer BC ==
[2024-10-09 10:11] VITALS: RESP 18
[2024-10-09] MEDS: ORPHENADRINE 30 MG/ML 2 ML VIAL IM STA (11:13)
[2024-10-09] MEDS: LIDOCAINE 4% PATCH TOPICAL ONE (11:13)
[2024-10-09] MEDS: HYDROcodone/APAP 5-325MG 1 EACH TAB PO STA (11:20)
[2024-10-09] MEDS: KETOROLAC 15 MG/ML 1 ML VIAL IM STA (11:34)
--- NOTE | 2024-10-09 12:04 | CT ---
EXAMINATION TYPE: CT cervical spine wo con DATE OF EXAM: 10/09/2024 COMPARISON: None CLINICAL INDICATION: Female, 39 years old with history of pain; [facility], Patient was sent sent by [facility] for a CT due to severe left neck pain. Patient denies any injury. TECHNIQUE: CT scan of the cervical spine is obtained without contrast, axial images are obtained, sa gittal and coronal reformatted images are also reviewed. CT DLP: 301.[address] CTDI: mGy Automated exposure control for dose reduction was used. FINDINGS: Cervical spine is visualized in its entirety from C1 through upper thoracic levels, demonst rates satisfactory alignment without evidence of acute fracture or dislocation. Prevertebral soft ti ssue appears within normal limits. The C1-C2 articulation is within normal limits on the coronal jose alfredo ges. The disc spaces well preserved. There is no bony encroachment of this cervical canal or neural foramina. IMPRESSION: No significant abnormality seen of the cervical spine. [facility], , 10/09/2024 12:02 PM
--- NOTE | 2024-10-09 12:20 | ED ---
Neck Injury/Pain HPI - General Chief Complaint: Neck Pain/Injury Stated Complaint: Neck pain Time Seen by Provider: 10/09/24 10:05 Source: patient, RN notes reviewed Mode of arrival: ambulatory Limitations: no limitations - History of Present Illness Initial Comments: 39-year-old female presents emergency department from urgent care for evaluation of left-sided neck comfort. Patient states has been having some ongoing issues after having ear and pneumonia but this was several months ago she states that over the last 2 days she has had left neck pain worse with movement denies any trauma no falls states that radiates down towards the shoulder denies any focal weakness no chest pain no shortness of breath no other associated symptoms. - Related Data Home Medications Medication Instructions Recorded Confirmed Albuterol Inhaler [Ventolin 2 puff INHALATION Q6H PRN 08/24/13 09/25/23 Inhaler] Dextroamphetamine/Amphetamine 20 mg PO BID 09/23/23 09/25/23 [Adderall Xr 20 mg Capsule] Previous Rx's Medication Instructions Recorded oxyCODONE HCL [OxyIR] 5 mg PO Q6H PRN 3 Days #6 tab 09/25/23 Cyclobenzaprine [Flexeril] 10 mg PO TID PRN #15 tab 10/09/24 Allergies Allergy/AdvReac Type Severity Reaction Status Date / Time Penicillins Allergy Rash/Hives Verified 10/09/24 10:10 Review of Systems ROS Statement: Those systems with pertinent positive or pertinent negative responses have been documented in the HPI. ROS Other: All systems not noted in ROS Statement are negative. Past Medical History Past Medical History: Asthma Additional Past Medical History / Comment(s): hernia abdomen,Covid infection - 2023 History of Any Multi-Drug Resistant Organisms: None Reported Past Surgical History: Hernia Repair Additional Past Surgical History / Comment(s): Dental procedure. Hernia repair 2013. Past Anesthesia/Blood Transfusion Reactions: No Reported Reaction Additional Past Anesthesia/Blood Transfusion Reaction / Comment(s): emotional and sad coming out of anesthesia. mom is also emotional coming out of anesthesia. no hx blood transfusion Past Psychological History: ADD/ADHD Smoking Status: Former smoker Past Alcohol Use History: Rare - Past Family History Mother Family Medical History: No Reported History General Exam Limitations: no limitations General appearance: alert, in no apparent distress Head exam: Present: atraumatic, normocephalic, normal inspection Eye exam: Present: normal appearance, PERRL, EOMI. Absent: scleral icterus, conjunctival injection, periorbital swelling ENT exam: Present: normal exam, mucous membranes moist Neck exam: Present: normal inspection, tenderness (Pain with palpation and range of motion over left trapezius), full ROM. Absent: meningismus, lymphadenopathy Respiratory exam: Present: normal lung sounds bilaterally. Absent: respiratory distress, wheezes, rales, rhonchi, stridor Cardiovascular Exam: Present: regular rate, normal rhythm, normal heart sounds. Absent: systolic murmur, diastolic murmur, rubs, gallop, clicks GI/Abdominal exam: Present: soft, normal bowel sounds. Absent: distended, tenderness, guarding, rebound, rigid Neurological exam: Present: alert, oriented X3, CN II-XII intact, reflexes normal. Absent: motor sensory deficit Course Vital Signs 10/09/24 10:06 Temperature 97.8 F Pulse Rate 73 Respiratory 18 Rate Blood Pressure 138/89 O2 Sat by Pulse 99 Oximetry Medical Decision Making - Medical Decision Making Was pt. sent in by a medical professional or institution (, PA, ELEVATOR SUPERVISOR, urgent care, hospital, or fpc...) When possible be specific @ -Urgent care Did you speak to anyone other than the patient for history (EMS, parent, family, police, friend...)? What history was obtained from this source @ -No Did you review nursing and triage notes (agree or disagree)? Why? @ -I reviewed and agree with nursing and triage notes Were old charts reviewed (outside hosp., previous admission, EMS record, old EKG, old radiological studies, urgent care reports/EKG's, fpc records)? Report findings @ -No old charts were reviewed Differential Diagnosis (chest pain, altered mental status, abdominal pain women, abdominal pain men, vaginal bleeding, weakness, fever, dyspnea, syncope, headache, dizziness, GI bleed, back pain, seizure, CVA, palpatations, mental health, musculoskeletal)? @ -Patient's most cervical strain neck pain EKG interpreted by me (3pts min.). @ -None X-rays interpreted by me (1pt min.). @ -None done CT interpreted by me (1pt min.). @ -CT of the cervical spine showed no acute process no osseous abnormality U/S interpreted by me (1pt. min.). @ -None done What testing was considered but not performed or refused? (CT, X-rays, U/S, labs)? Why? @ -None What meds were considered but not given or refused? Why? @ -None Did you discuss the management of the patient with other professionals (professionals i.e. , PA, ELEVATOR SUPERVISOR, lab, RT, psych nurse, hospital social worker, indoor landscaper/gardener, teacher, chief revenue officer, pillowcase cleaner)? Give summary @ -No Was smoking cessation discussed for >3mins.? @ -No Was critical care preformed (if so, how long)? @ -No Were there social determinants of health that impacted care today? How? (Homelessness, low income, unemployed, alcoholism, drug addiction, transportation, low edu. Level, literacy, decrease access to med. care, longterm, rehab)? @ -No Was there de-escalation of care discussed even if they declined (Discuss DNR or withdrawal of care, Hospice)? DNR status @ -No What co-morbidities impacted this encounter? (DM, HTN, Smoking, COPD, CAD, Cancer, CVA, ARF, Chemo, Hep., AIDS, mental health diagnosis, sleep apnea, morbid obesity)? @ -None Was patient admitted / discharged? Hospital course, mention meds given and route, prescriptions, significant lab abnormalities, going to OR and other pertinent info. @ -Discharge patient has trapezius muscles pain, spasms. Patient was given Norflex and Toradol will be discharged in stable condition with Flexeril return parameters cussed. Undiagnosed new problem with uncertain prognosis? @ -No Drug Therapy requiring intensive monitoring for toxicity (Heparin, Nitro, Insulin, Cardizem)? @ -No Were any procedures done? @ -No Diagnosis/symptom? @ -Trapezium muscle spasm, cervical strain Acute, or Chronic, or Acute on Chronic? @ -Acute Uncomplicated (without systemic symptoms) or Complicated (systemic symptoms)? @ -Uncomplicated Side effects of treatment? @ -No Exacerbation, Progression, or Severe Exacerbation? @ -No Poses a threat to life or bodily function? How? (Chest pain, [place], [place], pneumonia, PE, COPD, DKA, ARF, appy, cholecystitis, CVA, Diverticulitis, Homicidal, Suicidal, threat to staff... and all critical care pts) @ -No Disposition Clinical Impression: Spasm of left trapezius muscle Disposition: HOME SELF-CARE Condition: Stable Instructions (If sedation given, give patient instructions): Acute Neck Pain (ED) Additional Instructions: Please return to the Emergency Department if symptoms worsen or any other concerns. Prescriptions: Cyclobenzaprine [Flexeril] 10 mg PO TID PRN #15 tab PRN Reason: Muscle Spasm Is patient prescribed a controlled substance at d/c from ED?: No Referrals: Demetrius Silva MD [Primary Care Provider] - 1-2 days Time of Disposition: 12:19
[2024-10-09] MEDS: ACET/COD 300 MG/30 MG STARTER PACK 6 TAB BTL PO STA (12:28)
[2024-10-09 12:33] VITALS: BP 116/78; PULSE 70; TEMP 98
== END 2024-10-09 12:32 | disposition home or self-care (01) ==
LOC: EC 09:48
DX: M62.838 Other muscle spasm (principal); Z87.891 Personal history of nicotine dependence; Z88.0 Allergy status to penicillin
CPT/HCPCS: 72125; 99284; 96372; J2360; J1885